=== PATIENT | female | born 1980 | race Hispanic/Latino ===

== ENCOUNTER 2020-03-14 14:31 | Outpatient (CLI) | payer OTHER ==
--- NOTE | 2020-03-14 15:34 | ULT ---
Pelvic sonogram transabdominal imaging with duplex evaluation HISTORY: Uterine bleeding. FINDINGS: Urinary bladder is decompressed. Uterus has a heterogeneous echotexture and is 10.9 cm iram th. Endometrium is 0.4 cm. No masses evident. Each ovary has normal appearance with small follicles and good color and spectral Doppler flow. Transvaginal imaging declined by the patient. IMPRESSION : No abnormalities are demonstrated.
== END 2020-03-14 14:32 | disposition home or self-care (01) ==
LOC: BICULT 14:31
PROVIDERS: ATTEND Nurse Practitioner Family
DX: N93.9 Abnormal uterine and vaginal bleeding, unspecified (principal)
CPT/HCPCS: 76856; 93976